=== PATIENT | male | born 1970 | race Caucasian/White ===

== ENCOUNTER 2019-03-29 19:57 | Emergency (ER) | payer OTHER ==
[~2019-03-29] VITALS: Ht 177.8 cm; Wt 90.9 kg
[2019-03-29] MEDS ORDERED: NORCO 325 MG-51 TAB PO (23:00)
[2019-03-29 23:54] VITALS: BP 125/76; PULSE 100; TEMP 98.4
== END 2019-03-30 00:15 | disposition home or self-care (01) ==
LOC: COL.ER 19:57
DX: S43.005A Unspecified dislocation of left shoulder joint, initial encounter (principal); W19.XXXA Unspecified fall, initial encounter; Y92.481 Parking lot as the place of occurrence of the external cause
CPT/HCPCS: J2060; J2405; J2704; J3010; J7040